=== PATIENT | female | born 1950 | race Caucasian/White ===

== ENCOUNTER 2017-06-14 07:30 | Day surgery (SDC) | payer BC ==
[2017-06-14] VITALS (9 sets, daily range): BP systolic 110–127; BP diastolic 64–81
[~2017-06-14] VITALS: Ht 162.6 cm; Wt 54.0 kg
[2017-06-14] MEDS ORDERED: Cyclopentolate 1% Opth Sol ONE (07:51)
[2017-06-14] MEDS ORDERED: Phenylephrine 2.5% Op Soln ONE (07:51)
[2017-06-14] MEDS: Cyclopentolate 1% Opth Sol LEFT EYE SCH ×3 (08:02→08:24)
[2017-06-14] MEDS: Phenylephrine 2.5% Op Soln LEFT EYE SCH ×3 (08:02→08:24)
[2017-06-14] MEDS ORDERED: LISINOPRIL5 MG ORAL (08:23)
[2017-06-14] MEDS ORDERED: CYMBALTA60 MG ORAL (08:23)
[2017-06-14] MEDS ORDERED: PRADAXA150 MG ORAL (08:23)
[2017-06-14] MEDS ORDERED: LR 1000ml 1,000 ML IVLG SCH (08:26)
[2017-06-14] MEDS ORDERED: fentaNYL 100 mcg/2 mL IV PRN (08:30)
[2017-06-14] MEDS ORDERED: Morphine Sulfate 2mg/ml Inj IVP PRN (08:30)
[2017-06-14] MEDS ORDERED: DiphenhydrAMINE 50mg/ml Inj IVP PRN (08:30)
[2017-06-14] MEDS ORDERED: Ketorolac 30mg Inj IV PRN (08:30)
[2017-06-14] MEDS ORDERED: Metoclopramide 10mg/2ml Inj IVP PRN (08:30)
[2017-06-14] MEDS ORDERED: Acetaminophen (Non formulary) 100 ML IV ONE (08:30)
--- NOTE | 2017-06-14 08:30 | Anethesia Preoperative Eval ---
Anesthesia Pre-op PMH/ROS General Date of Evaluation: Jun 14, 2017 Time of Evaluation: 09:00 Anesthesiologist: EBER ASA Score: ASA 2 Mallampati Score Class I : Soft palate, uvula, fauces, pillars visible Class II: Soft palate, uvula, fauces visible Class III: Soft palate, base of uvula visible Class IV: Only hard plate visible Mallampati Classification: Class II Surgeon: Kathe Diagnosis: retinal membrane Surgical Procedure: PPV Anesthesia History: none Allergies: Coded Allergies: TOPIRAMATE (Verified Allergy, Unknown, 06/13/17) Medications: see eMAR Anesthesia Pre-op Phys. Exam Physician Exam Constitutional: NAD Neurologic: CN 2-12 intact Cardiovascular: RRR Respiratory: CTA Gastrointestinal: S/NT/ND Airway Exam Mallampati Score: Class II MO: full ROM: full Teeth: intact Anesthesia Pre-op A/P Risk Assessment & Plan Plan: RBB by surgeon Pre-Antibiotics Given Within 1 Hr of Incision: Yes Time Given: 09:30 Vineet Zuniga M.D. Jun 14, 2017 08:30
--- NOTE | 2017-06-14 08:31 | Immediate Post-Op Evaluation ---
Immediate Post-Op Evalulation Immediate Post-Op Evalulation Procedure: PPV Date of Evaluation: Jun 14, 2017 Time of Evaluation: 11:00 IV Fluids: 1000 Blood Products: 0 Estimated Blood Loss: 0 Urinary Output: 0 Blood Pressure Systolic: 123 Blood Pressure Diastolic: 68 Pulse Rate: 78 Respiratory Rate: 14 O2 Sat by Pulse Oximetry: 99 Temperature (Fahrenheit): 98 Pain Score (1-10): 0 Nausea: No Vomiting: No Patient Status: awake, reacts, patent, extubated Hydration Status: adequate Given Within 1 Hr of Incision: Yes Time Given: 09:30 Vineet Zuniga M.D. Jun 14, 2017 08:31
--- NOTE | 2017-06-14 08:32 | 48 Hour Post Anesthesia Eval ---
Post Anesthesia Evaluation Procedure: PPV Date of Evaluation: Jun 16, 2017 Time of Evaluation: 14:20 Blood Pressure Systolic: 65 Pulse Rate: 85 Respiratory Rate: 16 Temperature (Fahrenheit): 97 O2 Sat by Pulse Oximetry: 99 Airway: patent Nausea: No Vomiting: No Hydration Status: adequate Mental Status/LOC: patient returned to baseline Follow-up care needed: patient intructions given Vineet Zuniga M.D. Jun 14, 2017 08:32
[2017-06-14] MEDS ORDERED: Kenalog-40 1ml Vial ONE (09:15)
[2017-06-14] MEDS ORDERED: BSS 500ml btl ONE ×2 (09:15→10:19)
[2017-06-14] MEDS ORDERED: Maxitrol Opth Susp 5ml ONE (09:16)
[2017-06-14] MEDS ORDERED: Povidone-Iodine 5% opth solution ONE (09:16)
[2017-06-14] MEDS ORDERED: Lidocaine 2% MPF 5ml Vial INJ ONE (09:16)
[2017-06-14] MEDS ORDERED: Dexamethasone 4mg/ml vial ONE (09:16)
[2017-06-14] MEDS ORDERED: Tetracaine 0.5% Opth Soln ONE (09:16)
[2017-06-14] MEDS ORDERED: BSS 15ml BTL ONE (09:17)
[2017-06-14] MEDS ORDERED: Goniosol 2.5% Opth Soln - 15ml ONE (09:17)
[2017-06-14] MEDS ORDERED: Bupivacaine 0.5% Inj 30 ml vial INJ ONE (09:17)
[2017-06-14] MEDS ORDERED: NS Irrig 1000ml ONE (09:30)
[2017-06-14] MEDS ORDERED: fentaNYL 100 mcg/2 mL IV ONE (09:30)
[2017-06-14] MEDS ORDERED: Indocyanine Green 25mg Inj INJ ONE (09:30)
[2017-06-14] MEDS ORDERED: Ketorolac 30mg Inj ONE (09:30)
[2017-06-14] MEDS ORDERED: Propofol 1,000mg/ 100ml btl IV ONE (09:30)
[2017-06-14] MEDS ORDERED: Midazolam 2mg/2ml Inj ONE (09:30)
[2017-06-14] MEDS ORDERED: LR 1000ml ONE (09:30)
[2017-06-14] MEDS ORDERED: Metoclopramide 10mg/2ml Inj ONE (09:30)
[2017-06-14] MEDS ORDERED: Sterile Water Irrig 1000ml IRRIG ONE (09:30)
[2017-06-14] MEDS ORDERED: Glycopyrrolate 0.2mg/ml 1ml Vial ONE (09:30)
--- NOTE | 2017-06-14 09:54 | Pre-Procedure Note/Attestation ---
Pre-Procedure Note/Attestation Complete Prior to Procedure Planned Procedure: left Procedure Narrative: Pars tea vitrectomy, membrane peeling, fluid-gas exchange, endolaser, left eye Indications for Procedure Pre-Operative Diagnosis: Retinal detachment, macula off, left eye Attestation I attest that I discussed the nature of the procedure; its benefits; risks and complications; and alternatives (and the risks and benefits of such alternatives ), prior to the procedure, with the patient (or the patient's legal passenger service representative). I attest that, if there was a reasonable possibility of needing a blood transfusion, the patient (or the patient's legal passenger service representative) was given the [place] Department [employer] standardized written summary, pursuant to the [place] Blood Safety Act ([place] Health and Safety Code # 1645, as amended). I attest that I re-evaluated the patient just prior to the surgery and that there has been no change in the patient's H&P, except as documented below: JONATHAN CENTENO Jun 14, 2017 09:54
--- NOTE | 2017-06-14 11:22 | Brief Operative Note ---
Immediate Post Operative Note Operative Note Pre-op Diagnosis: Retinal detachment, macula off, left eye Procedure: Pars plana vitrectomy, membrane peeling, fluid-gas exchange, endolaser, left eye Post-op Diagnosis: same as pre-op Surgeon: Jonathan Centeno MD Casino Floorperson: none Anesthesiologist: Vineet Jones MD Anesthesia: MAC Specimen: none Complications: none Condition: stable Fluids: none Estimated Blood Loss: none Drains: none Implant(s) used?: No JONATHAN CENTENO Jun 14, 2017 11:22
[2017-06-14] MEDS ORDERED: Norco 5mg/325mg tab ORAL PRN (15:01)
--- NOTE | 2017-06-15 08:30 | Operative Note - Dictated ---
DATE OF OPERATION: 06/14/2017 PREOPERATIVE DIAGNOSIS: Macula-off retinal detachment, left eye. POSTOPERATIVE DIAGNOSIS: Macula-off retinal detachment, left eye. PROCEDURE: Pars plana vitrectomy, membrane peeling, fluid-gas exchange, endolaser, left eye. SURGEON: Abelino Archuleta M.D. MOBILE PET GROOMER: No operations assistant. ANESTHESIA: Local standby. ANESTHESIOLOGIST: Vineet Zuniga M.D. COMPLICATIONS: None. PROCEDURE AND FINDINGS: The patient was anesthetized using a retrobulbar injection consisting of 9 mL of a 50:50 mixture of lidocaine 2% and Marcaine 0.75% with 150 units of hyaluronidase added. When anesthesia was obtained, she was prepped and draped in the usual sterile manner for ophthalmic surgery. A self-retaining lid speculum was placed between the lids. A 23-gauge trocar was used to place a cannula 3.5 millimeters posterior to the surgical limbus in the infratemporal quadrant. An infusion line was hooked to the cannula and verified to be in the posterior chamber prior to turning on the infusion. In turn, superior nasal and superior temporal cannulas were placed. A fiberoptic light pipe and vitrectomy instrument were inserted into the eye. The vitrectomy was performed with elevation of the posterior hyaloid face and trimming of the vitreous back to the base for 360 degrees. There was a horseshoe tear superotemporally as well as smaller tears and some degeneration temporally and inferotemporally. An extrusion cannula was used to vacuum up. An extrusion cannula was used to aspirate through the break superotemporally. This had been marked was under lot of cautery. A fluid-fluid exchange was performed with some flattening of the retina onto the posterior pole prior to more complete closure. A fluid-fluid exchange was performed by aspirating through the break and this was followed by fluid-air exchange with total flattening of the retina onto the posterior pole. Endolaser was applied in multiple confluent patterns around the breaks, superotemporally as well as in the areas temporal and inferotemporally. The heavy perfluorocarbon liquid which was used to flatten the retina out to the level of the break prior to performing the fluid-air exchange was removed from the eye during the aspiration. The instruments were removed from the eye and the superior cannulas were removed. The infusion line cannula were removed leaving the eye with a normal intra-ocular pressure and a good gas fill. A subconjunctival injection consisting of vancomycin and Decadron was given. The patient was patched with atropine and Maxitrol drops and sent to the recovery room in good condition. Abelino Archuleta M.D. DR: DINAH JOB#: [id number] CC:
== END 2017-06-14 13:00 | disposition home or self-care (01) ==
LOC: SUR 07:30
DX: H33.22 Serous retinal detachment, left eye (principal); Z88.8 Allergy status to other drugs, medicaments and biological substances; I13.0 Hypertensive heart and chronic kidney disease with heart failure and stage 1 through stage 4 chronic kidney disease, or unspecified chronic kidney disease; N18.3 Chronic kidney disease, stage 3 (moderate); F32.9 Major depressive disorder, single episode, unspecified; Z82.49 Family history of ischemic heart disease and other diseases of the circulatory system; E78.5 Hyperlipidemia, unspecified; Z86.73 Personal history of transient ischemic attack (TIA), and cerebral infarction without residual deficits; Z83.3 Family history of diabetes mellitus; I48.0 Paroxysmal atrial fibrillation
CPT/HCPCS: 67040; J1100; J1885; J2250; J2405; J2704; J2765; J3010; J3370; J3490; J7120; 94003; 94150